=== PATIENT | male | born 1950 | race Two or more races ===

== ENCOUNTER 2019-09-12 05:23 | Emergency (ER) | payer MEDICARE, OTHER ==
[~2019-09-12] VITALS: Ht 167.6 cm; Wt 116.0 kg
[~2019-09-12 05:23] MED LIST: INSULIN; [UNRECOGNIZED DRUG - REMARK]
--- NOTE | 2019-09-12 05:55 | NUR ---
BUSTOS PLACED PER ORDER.
[2019-09-12] MEDS ORDERED: LIDOCAINE 2%,20 ML JEL.PF.APP MM ONE (06:00)
[2019-09-12] MEDS ORDERED: INSU100C5 SQ-INSULIN (06:03)
[2019-09-12] MEDS ORDERED: TAMS-11 PO (06:03)
[2019-09-12] MEDS ORDERED: GEMF600T8 PO (06:03)
[2019-09-12 06:10] LABS: MICROSCOPIC INDICATED
[2019-09-12 06:22] VITALS: BP 133/82
[2019-09-12] MEDS ORDERED: CEFDINIR 300 MG CAPSULE ONE (06:39)
--- NOTE | 2019-09-12 06:44 | NUR ---
MEDICATED PER MAR.
[2019-09-12] MEDS ORDERED: CEFDINIR 300 MG CAPSULE PO ONE (07:00)
== END 2019-09-12 07:06 | disposition home or self-care (01) ==
LOC: ED 06:10
DX: N30.00 Acute cystitis without hematuria (principal); R33.8 Other retention of urine; E11.9 Type 2 diabetes mellitus without complications; Z85.46 Personal history of malignant neoplasm of prostate
CPT/HCPCS: 51702; 81001; 87077; 87086; 87186; 99284

== ENCOUNTER 2019-09-15 07:30 | Emergency (ER) | payer MEDICARE ==
[~2019-09-15] VITALS: Ht 167.6 cm; Wt 115.0 kg
[~2019-09-15 07:30] MED LIST changes: +GEMF600T8 PO; +INSU100C5 SQ-INSULIN; +TAMS-11 PO
--- NOTE | 2019-09-15 07:33 | NUR ---
CALLED NO ANSWER.
--- NOTE | 2019-09-15 08:00 | NUR ---
FIRST CONTACT WITH PT. PT HAS C/O INABILITY TO URINATE SINCE 1 AM TODAY. LOWER ABD. PAIN. PT. HAD A BUSTOS CATH REMOVED YESTERDAY. PT'S AOX4. RESPS EVEN AND UNLABORED. DENIES ANY OTHER SX. BP/SPO2 MONITORS IN PLACE. CALL LIGHT WITHIN REACH.
--- NOTE | 2019-09-15 08:42 | NUR ---
BUSTOS CATH PLACED PER ORDER. PT TOLERATED WELL. URINE COLLECTED AND UA SENT.
[2019-09-15 08:45] LABS: MICROSCOPIC AUTO
--- NOTE | 2019-09-15 09:16 | NUR ---
LEG BAG PLACED FOR DC. PT TOLERATED WELL. PT'S AOX4. RESPS EVEN AND UNLABORED.
[2019-09-15 09:17] VITALS: BP 110/67
--- NOTE | 2019-09-15 10:00 | NUR ---
Patient given discharge instructions and they have confirmed that they understand the instructions. Patient ambulatory with steady gait.
== END 2019-09-15 10:01 | disposition home or self-care (01) ==
LOC: ED 08:01
DX: N30.01 Acute cystitis with hematuria (principal); N40.1 Benign prostatic hyperplasia with lower urinary tract symptoms; R33.8 Other retention of urine; E11.9 Type 2 diabetes mellitus without complications; Z85.46 Personal history of malignant neoplasm of prostate
CPT/HCPCS: 51702; 81001; 87086; 99284

== ENCOUNTER 2019-09-21 10:58 | Emergency (ER) | payer MEDICARE ==
[~2019-09-21] VITALS: Ht 167.6 cm; Wt 112.0 kg
--- NOTE | 2019-09-21 11:13 | NUR ---
PT AMBULATORY TO ED ROOM 2. STATES HE'S HERE FOR BUSTOS REMOVAL - CATH PLACED LAST THURSDAY IN [facility] ED. STATES "I WAS SUPPOSED TO KEEP WITH IT UNTIL I FINISHED THE MEDICINE" - UNABLE TO RECALL RX NAME; LAST DOSE WAS TODAY.
[2019-09-21] MEDS ORDERED: METF10007 PO (11:20)
[2019-09-21] MEDS ORDERED: INSU100V12 SQ (11:20)
[2019-09-21] MEDS ORDERED: LISI40TA PO (11:20)
[2019-09-21] MEDS ORDERED: CEFD300C37 PO (11:20)
[2019-09-21 11:22] VITALS: BP 139/83
--- NOTE | 2019-09-21 11:35 | NUR ---
16FR BUSTOS REMOVED; PT TOLERATED PROCEDURE WELL.
== END 2019-09-21 11:50 | disposition home or self-care (01) ==
LOC: ED 11:30
DX: E11.9 Type 2 diabetes mellitus without complications (principal); Z46.6 Encounter for fitting and adjustment of urinary device
CPT/HCPCS: 99283

== ENCOUNTER 2019-09-22 02:34 | Emergency (ER) | payer MEDICARE ==
[~2019-09-22] VITALS: Ht 167.6 cm; Wt 112.9 kg
[~2019-09-22 02:34] MED LIST changes: +CEFD300C37 PO; +INSU100V12 SQ; +LISI40TA PO; +METF10007 PO
[2019-09-22 03:05] LABS: BASOPHILS # (AUTO) 0.02 x10^3/uL (0-0.1); BASOPHILS % (AUTO) 0 % (0-1); EOSINOPHILS # (AUTO) 0.08 x10^3/uL (0-0.4); EOSINOPHILS % (AUTO) 1 % (1-7); LYMPHOCYTES # (AUTO) 1.13 x10^3/uL (1-3.4); LYMPHOCYTES % (AUTO) 15 % (22-44); MD NO; MEAN CORPUSCULAR HEMOGLOBIN 30.4 pg (27.5-34.5); MEAN CORPUSCULAR HGB CONC 33.8 g/dL (33.2-36.2); MEAN CORPUSCULAR VOLUME 90.2 fL (81-97); MEAN PLATELET VOLUME 7.6 fL (7.4-10.4); MONOCYTES # (AUTO) 0.51 x10^3/uL (0.2-0.8); MONOCYTES % (AUTO) 7 % (2-9); NEUTROPHILS # (AUTO) 6.05 x10^3/uL (1.8-6.8); NEUTROPHILS % (AUTO) 78 % (42-75); PLATELET COUNT 213 x10^3/uL (130-400); RED CELL DISTRIBUTION WIDTH 13.9 % (9.4-14.8)
[2019-09-22 03:11] LABS: ANION GAP 7 mmol/L (5-15); CALCIUM 9.5 mg/dL (8.5-10.1); CHLORIDE 108 mmol/L (98-107); CREATININE 1.06 mg/dL (0.7-1.3)
[2019-09-22 03:46] LABS: MICROSCOPIC INDICATED
--- NOTE | 2019-09-22 04:13 | NUR ---
900mL out from antunez catheter.
[2019-09-22 04:42] VITALS: BP 159/92
== END 2019-09-22 04:38 | disposition home or self-care (01) ==
LOC: ED 03:01
DX: N40.1 Benign prostatic hyperplasia with lower urinary tract symptoms (principal); R33.8 Other retention of urine; E11.9 Type 2 diabetes mellitus without complications; Z85.46 Personal history of malignant neoplasm of prostate
CPT/HCPCS: 36415; 51702; 80048; 81001; 82040; 85025; 87086; 99284

== ENCOUNTER 2020-09-18 06:01 | Emergency (ER) | payer MEDICARE ==
[~2020-09-18] VITALS: Ht 167.6 cm; Wt 121.3 kg
[~2020-09-18 06:01] MED LIST changes: +GEMF-31 PO; -GEMF600T8 PO; -LISI40TA PO; +LISI40TA9 PO
[2020-09-18] MEDS ORDERED: TRANEXAMIC ACID 100 MG/ML, 10ML ONE (06:16)
[2020-09-18] MEDS ORDERED: PHENYLEPHRINE NASAL 1%, 15ML SPRAY ONE (06:16)
[2020-09-18] MEDS ORDERED: TRANEXAMIC ACID 100 MG/ML, 10ML TP ONE (06:30)
[2020-09-18] MEDS ORDERED: LIDOCAINE 1%-EPI 1:100K, 20ML INFIL ONE (06:30)
[2020-09-18] MEDS ORDERED: PHENYLEPHRINE NASAL 1%, 15ML SPRAY NAS ONE (06:30)
--- NOTE | 2020-09-18 06:53 | NUR ---
[facility] RPT REC'D AND PT CARE ASSUMED. DR PACKER AT BEDSIDE, PACKING REMOVED, NO ACTIVE BLEEDING NOTED. NOSE CLAMP PLACED AND WILL MONITOR FOR REBLEED X 3O MIN. PT VSS, NAD NOTED. CALL LIGHT W/I REACH
[2020-09-18 06:54] VITALS: BP 163/94
--- NOTE | 2020-09-18 07:39 | NUR ---
Patient/Caregiver given discharge instructions and they have confirmed that they understand the instructions. Patient ambulatory with steady gait.
== END 2020-09-18 07:47 | disposition home or self-care (01) ==
LOC: ED 06:58
DX: R04.0 Epistaxis (principal); I10 Essential (primary) hypertension; E11.9 Type 2 diabetes mellitus without complications
CPT/HCPCS: 30901; 99284

== ENCOUNTER 2020-09-23 22:17 | Emergency (ER) | payer MEDICARE ==
[~2020-09-23] VITALS: Ht 167.6 cm; Wt 122.0 kg
--- NOTE | 2020-09-23 22:51 | NUR ---
Provider with pt to do evaluation.
[2020-09-23] MEDS ORDERED: OXYMETAZOLINE NASAL SPRAY 0.05%,30ML NAS ONE (23:00)
--- NOTE | 2020-09-23 23:00 | NUR ---
PT STATES HAS HAD A NOSE BLEED SINCE 1800 TONIGHT. [facility] FOR THE SAME.
[2020-09-23] MEDS ORDERED: OXYMETAZOLINE NASAL SPRAY 0.05%,30ML ONE (23:06)
--- NOTE | 2020-09-23 23:15 | NUR ---
PT RECLINED AND COMFORTABLE GIVEN MEDICATION FOR NOSEBLEED.
--- NOTE | 2020-09-24 00:02 | NUR ---
Provider at bedside to discuss plan of care.
[2020-09-24 00:03] VITALS: BP 155/93
--- NOTE | 2020-09-24 00:35 | NUR ---
Patient/Caregiver given discharge instructions and they have confirmed that they understand the instructions. Patient ambulatory to discharge desk. No quesitons at time of discharge.
== END 2020-09-24 00:37 | disposition home or self-care (01) ==
LOC: ED 23:40
DX: R04.0 Epistaxis (principal); I10 Essential (primary) hypertension; E11.9 Type 2 diabetes mellitus without complications
CPT/HCPCS: 99282